=== PATIENT | female | born 1955 | race Caucasian/White ===

== ENCOUNTER 2018-09-17 08:39 | Inpatient (IN) ==
[2018-09-17] MEDS ORDERED: ZIPRASIDONE 20 MG/1 ML VIAL IM STA (09:07)
[2018-09-17] MEDS ORDERED: ZIPRASIDONE 20 MG/1 ML VIAL IM ONE (09:19)
[2018-09-17 09:46] LABS: Basophils % 0.9 % (0.0-0.8); Eosinophils % 0.2 % (0.00-10.9); Hematocrit 51.9 VOL% (35.7-47.0); Hemoglobin 16.7 GM/DL (12.0-16.0); Immature Granulocytes % 0.2 %; Immature Granulocytes Absolute 0.01 #; Lymphocytes # 0.6 10*3/uL (1.4-4.0); Lymphocytes % 12.4 % (21.3-54.2); Mean Corpuscular HGB Conc 32.2 GM/DL (32-36); Mean Corpuscular Volume 94.5 FL (87-102); Mean Platelet Volume 12.2 FL (9.6-12.0); Neutrophils % 79.3 % (38.7-73.9); Platelet Count 164 T/CUMM (130-400); Red Blood Count 5.49 MC/CUMM (3.8-5.5); Red Cell Distribution Width 15.1 % (9.3-17.3); White Blood Count 4.6 T/CUMM (4-12)
[2018-09-17 09:59] LABS: INR 1.4; PT Patient Result 14.9 SECS; Partial Thromboplastin Time 34.7 SECS (0-40)
[2018-09-17 10:05] LABS: Alanine Aminotransferase < 9 U/L (13-56); Albumin 3.8 G/DL (3.4-5.0); Alkaline Phosphatase 76 U/L (45-117); Aspartate Amino Transferase 12 U/L (0-37); Bilirubin,Total < 0.39 MG/DL (0.2-1.0); Blood Urea Nitrogen 21 MG/DL (7-18); Calcium 8.4 MG/DL (8.5-10.1); Glucose 93 MG/DL (74-106); Osmolality,Calculated 288.8 MOS/KG (273-304); Total Protein 7.2 G/DL (6.4-8.3)
[2018-09-17 10:20] LABS: Barbiturates Screen,Urine Negative (Negative); Benzodiazepines Screen,Urine Negative (Negative); Cannabinoid Screen,Urine Negative (Negative); Opiate Screen,Urine Negative (Negative); Phencyclidine Screen,Urine Negative (Negative)
[2018-09-17 10:39] LABS: Apearance,Urine Clear (Clear); Bilirubin,Urine Negative (Negative); Blood, Urine Trace mg/dL (Negative); Glucose,Urine (UA) Negative (Negative); Ketones,Urine 3+ mg/dL (Negative); Nitrite,Urine Negative (Negative); Protein,Urine 2+ MG/DL; Urine Color Amber (Yellow); Urine Specific Gravity 1.035 (1.001-1.035)
[2018-09-17 10:40] LABS: RBC,Urine Trace /HPF (0-4); Squamous Epithelial Cell,Urine Few /HPF (0-10); WBC,Urine Rare /HPF (0-6)
[2018-09-17 10:41] LABS: Amorphous Crystals,Urine Few /HPF (Few); Hyaline Casts,Urine Few /LPF (0-3)
[2018-09-17] MEDS ORDERED: SODIUM CHLORIDE 0.9% 1,000 ML IV STA (11:07)
[2018-09-17] MEDS ORDERED: ONDANSETRON 4 MG/2 ML VIAL IV PRN (13:27)
[2018-09-17] MEDS: SODIUM CHLORIDE 0.9% 1,000 ML IV SCH (15:15)
[2018-09-18 07:07] LABS: Basophils % 0.4 % (0.0-0.8); Hematocrit 47.7 VOL% (35.7-47.0); Hemoglobin 14.8 GM/DL (12.0-16.0); Immature Granulocytes % 0.4 %; Immature Granulocytes Absolute 0.04 #; Lymphocytes # 0.6 10*3/uL (1.4-4.0); Lymphocytes % 5.7 % (21.3-54.2); Mean Corpuscular Volume 97.9 FL (87-102); Mean Platelet Volume 12.3 FL (9.6-12.0); Neutrophils % 86.5 % (38.7-73.9); Platelet Count 149 T/CUMM (130-400); Red Blood Count 4.87 MC/CUMM (3.8-5.5); Red Cell Distribution Width 15.5 % (9.3-17.3); White Blood Count 10.1 T/CUMM (4-12)
[2018-09-18 07:37] LABS: Albumin 3.1 G/DL (3.4-5.0); Bilirubin,Total 0.7 MG/DL (0.2-1.0); Calcium 8.2 MG/DL (8.5-10.1); Osmolality,Calculated 294.3 MOS/KG (273-304); Thyroid Stimulating Hormone 0.299 uIU/ml (0.358-3.74); Total Protein 5.8 G/DL (6.4-8.3)
[2018-09-18] MEDS: ENOXAPARIN 40 MG/0.4 ML SYRINGE SUBCUT SCH (08:48)
[2018-09-18] MEDS: PANTOPRAZOLE 40 MG VIAL IV SCH (08:54)
[2018-09-18] MEDS ORDERED: PANTOPRAZOLE 40 MG TABLET PO SCH (09:00)
[2018-09-18] MEDS: SODIUM CHLORIDE 0.9% 1,000 ML IV SCH (10:52)
[2018-09-18] MEDS: QUEtiapine 25 MG TABLET PO SCH (18:00)
[2018-09-18] MEDS: DONEPEZIL 5 MG TABLET PO SCH (20:11)
[2018-09-19 06:04] LABS: Basophils % 0.6 % (0.0-0.8); Eosinophils % 0.2 % (0.00-10.9); Immature Granulocytes % 0.6 %; Immature Granulocytes Absolute 0.03 #; Lymphocytes # 0.6 10*3/uL (1.4-4.0); Lymphocytes % 11.9 % (21.3-54.2); Mean Corpuscular HGB Conc 31.8 GM/DL (32-36); Mean Corpuscular Volume 96.9 FL (87-102); Mean Platelet Volume 12.1 FL (9.6-12.0); Monocytes % 9.5 % (1.7-12.7); Neutrophils % 77.2 % (38.7-73.9); Platelet Count 123 T/CUMM (130-400); Red Blood Count 4.54 MC/CUMM (3.8-5.5); Red Cell Distribution Width 15.1 % (9.3-17.3); White Blood Count 5.4 T/CUMM (4-12)
[2018-09-19 06:36] LABS: Albumin 2.8 G/DL (3.4-5.0); Bilirubin,Total 0.8 MG/DL (0.2-1.0); Calcium 8.3 MG/DL (8.5-10.1); Osmolality,Calculated 286.7 MOS/KG (273-304); Total Protein 5.5 G/DL (6.4-8.3)
[2018-09-19] MEDS: SODIUM CHLORIDE 0.9% 1,000 ML IV SCH (06:40)
[2018-09-19] MEDS: PANTOPRAZOLE 40 MG VIAL IV SCH (08:41)
[2018-09-19] MEDS: QUEtiapine 25 MG TABLET PO SCH (08:41)
[2018-09-19] MEDS: ENOXAPARIN 40 MG/0.4 ML SYRINGE SUBCUT SCH (08:42)
[2018-09-19] MEDS ORDERED: ACETAMINOPHEN 325 MG TABLET PO PRN (15:08)
[2018-09-19] MEDS ORDERED: QUEtiapine 25 MG TABLET PO ONE (19:10)
[2018-09-19] MEDS: DONEPEZIL 5 MG TABLET PO SCH (20:23)
[2018-09-20] MEDS: SODIUM CHLORIDE 0.9% 1,000 ML IV SCH (01:40)
[2018-09-20] MEDS: ENOXAPARIN 40 MG/0.4 ML SYRINGE SUBCUT SCH (09:20)
[2018-09-20] MEDS: QUEtiapine 25 MG TABLET PO SCH (09:21)
[2018-09-20] MEDS: PANTOPRAZOLE 40 MG VIAL IV SCH (09:21)
[2018-09-20] MEDS ORDERED: LORazepam 0.5 MG TABLET PO PRN (14:56)
[2018-09-20] MEDS ORDERED: NICOTINE 14 MG/24 HR PATCH TRANSDERM SCH (15:00)
[2018-09-20 17:58] VITALS: BP 184/86
== END 2018-09-20 18:38 | DRG 884 ==
LOC: EDUNIT# → EDBD → N.ED 08:39 → N.EDINP 11:12 → N.5E 13:05
PROVIDERS: ADMIT Internal Medicine; ATTEND Internal Medicine

== ENCOUNTER 2022-01-25 21:40 | Inpatient (IN) ==
[2022-01-25] MEDS ORDERED: methylPREDNISolone SOD SUC 125 MG/2 ML VIAL IV STA (22:12)
[2022-01-25] MEDS ORDERED: ALBUTEROL/IPRATROPIUM 3 ML NEB RESP TX STA (22:12)
[2022-01-25] MEDS ORDERED: hydrALAZINE 20 MG/1 ML VIAL IV STA (22:15)
[2022-01-25 22:33] LABS: Basophils # 0.1 10*3/uL (0.0-0.2); Basophils % 0.6 % (0.0-0.8); Eosinophils # 0.1 10*3/uL (0.0-0.87); Eosinophils % 0.6 % (0.00-10.9); Hematocrit 53.6 VOL% (35.7-47.0); Hemoglobin 16.9 GM/DL (12.0-16.0); Immature Granulocytes % 0.6 %; Immature Granulocytes Absolute 0.08 #; Lymphocytes # 1.8 10*3/uL (1.4-4.0); Lymphocytes % 13.1 % (21.3-54.2); Mean Corpuscular HGB Conc 31.5 GM/DL (32-36); Mean Platelet Volume 12.9 FL (9.6-12.0); Monocytes # 0.8 10*3/uL (0.11-0.8); Monocytes % 5.7 % (1.7-12.7); Neutrophils % 79.4 % (38.7-73.9); Platelet Count 200 T/CUMM (130-400); Red Blood Count 5.64 MC/CUMM (3.8-5.5); Red Cell Distribution Width 13.2 % (9.3-17.3)
[2022-01-25 22:50] LABS: Arterial Base Excess iSTAT -8 MMOL/L (-2.5-2.5); Arterial Bicarbonate iSTAT 20.7 MMOL/L (20-26); Arterial O2 Saturation iSTAT 89 % (95-100); Arterial PCO2 iSTAT 53 MM HG (35-48); Arterial PO2 iSTAT 71 MM HG (80-95); Arterial Total CO2 iSTAT 22 MMO/L (23-27)
[2022-01-25] MEDS ORDERED: ALBUTEROL 2.5 MG/3 ML NEB RESP TX ONE (22:50)
[2022-01-25] MEDS ORDERED: ALBUTEROL NEB SOLN 5 MG/ML 20 ML/BOTTLE CONT NEB STA (22:50)
[2022-01-25 22:54] LABS: Albumin 3.3 G/DL (3.4-5.0); Bilirubin,Total 0.5 MG/DL (0.20-1.00); Calcium 9.1 MG/DL (8.5-10.1); Osmolality,Calculated 291.1 MOS/KG (273-304); Potassium 5.4 MMOL/L (3.5-5.1); Total Protein 6.9 G/DL (6.4-8.2)
[2022-01-25] MEDS ORDERED: cefTRIAXone 1,000 MG in SODIUM CHLORIDE 0.9% 100 ML IV STA (22:56)
[2022-01-25 23:00] LABS: Lymphocytes 13 % (20-55); Platelet Estimate Adequate; Total Cells Counted 100
[2022-01-25] MEDS ORDERED: FUROSEMIDE 20 MG/2 ML VIAL IV STA (23:40)
[2022-01-25] MEDS ORDERED: FUROSEMIDE 40 MG/4 ML VIAL ONE (23:53)
[2022-01-26] MEDS ORDERED: ETOMIDATE 20 MG/10 ML VIAL IV STA (00:26)
[2022-01-26] MEDS ORDERED: ROCURONIUM 100 MG/10 ML VIAL IV STA (00:26)
[2022-01-26] MEDS ORDERED: ROCURONIUM 100 MG/10 ML VIAL IV ONE (00:42)
[2022-01-26] MEDS ORDERED: ETOMIDATE 20 MG/10 ML VIAL IV ONE (00:42)
[2022-01-26] MEDS ORDERED: ALBUTEROL 2.5 MG/3 ML NEB RESP TX PRN (02:54)
[2022-01-26] MEDS ORDERED: hydrALAZINE 20 MG/1 ML VIAL IV PRN (02:55)
[2022-01-26] MEDS ORDERED: NICOTINE 21 MG/24 HR PATCH TRANSDERM PRN (02:55)
[2022-01-26] MEDS ORDERED: FAMOTIDINE 20 MG/2 ML VIAL IV SCH (03:00)
[2022-01-26] MEDS ORDERED: SODIUM POLYSTYRENE SULFATE 15 GM/60 ML BOTTLE PO ONE (03:04)
[2022-01-26 03:46] LABS: Arterial Base Excess iSTAT -6 MMOL/L (-2.5-2.5); Arterial Bicarbonate iSTAT 23.8 MMOL/L (20-26); Arterial O2 Saturation iSTAT 99 % (95-100); Arterial PCO2 iSTAT 62 MM HG (35-48); Arterial PO2 iSTAT 164 MM HG (80-95); Arterial Total CO2 iSTAT 26 MMO/L (23-27); Arterial pH iSTAT 7.192 (7.35-7.45)
[2022-01-26] MEDS ORDERED: ENOXAPARIN 60 MG/0.6 ML SYRINGE SUBCUT SCH (04:30)
[2022-01-26] MEDS: methylPREDNISolone SOD SUC 40 MG/1 ML VIAL IV SCH ×3 (05:28→21:08)
[2022-01-26] MEDS ORDERED: PNEUMOCOCCAL VACCINE (13 VALENT) 0.5 ML SYRINGE IM ONE (06:35)
[2022-01-26] MEDS: ALBUTEROL/IPRATROPIUM 3 ML NEB RESP TX SCH ×3 (07:02→18:50)
[2022-01-26 07:08] LABS: Basophils % 0.2 % (0.0-0.8); Hematocrit 55.4 VOL% (35.7-47.0); Hemoglobin 17.4 GM/DL (12.0-16.0); Immature Granulocytes % 0.5 %; Immature Granulocytes Absolute 0.09 #; Lymphocytes # 0.3 10*3/uL (1.4-4.0); Lymphocytes % 1.7 % (21.3-54.2); Mean Corpuscular HGB Conc 31.4 GM/DL (32-36); Mean Platelet Volume 12.9 FL (9.6-12.0); Monocytes # 0.9 10*3/uL (0.11-0.8); Monocytes % 4.3 % (1.7-12.7); Neutrophils % 93.3 % (38.7-73.9); Platelet Count 201 T/CUMM (130-400); Red Blood Count 5.83 MC/CUMM (3.8-5.5); Red Cell Distribution Width 13.7 % (9.3-17.3); White Blood Count 19.9 T/CUMM (4-12)
[2022-01-26 07:33] LABS: Band Neutrophils 5 % (0-10); Lymphocytes 1 % (20-55); Platelet Estimate Normal; Total Cells Counted 100
[2022-01-26 07:37] LABS: Albumin 3.3 G/DL (3.4-5.0); Bilirubin,Total 0.4 MG/DL (0.20-1.00); Calcium 9.3 MG/DL (8.5-10.1); Osmolality,Calculated 289.4 MOS/KG (273-304); Potassium 4.6 MMOL/L (3.5-5.1); Total Protein 7.7 G/DL (6.4-8.2)
[2022-01-26 07:42] LABS: Bilirubin,Urine Negative (Negative); Blood, Urine Trace mg/dL (Negative); Glucose,Urine (UA) Negative (Negative); Hyaline Casts,Urine 6 /LPF (0-3); Ketones,Urine Negative (Negative); Mucus,Urine Occasional /LPF (Occasional); Nitrite,Urine Negative (Negative); Protein,Urine 30 mg/dL (Negative); Squamous Epithelial Cell,Urine Occasional /HPF (0-10); Urine Appearance Clear (Clear); Urine Color Yellow (Yellow); Urine Urobilinogen 0.2 eU/dL (<2.0); Urine pH 5.5 (4.5-8.0)
[2022-01-26] MEDS ORDERED: PROPRANOLOL 20 MG TABLET PO SCH (09:00)
[2022-01-26] MEDS ORDERED: ENOXAPARIN 40 MG/0.4 ML SYRINGE SUBCUT SCH (09:00)
[2022-01-26] MEDS ORDERED: AZITHROMYCIN 40 MG/ML 15 ML/BOTTLE PO ONE (09:45)
[2022-01-26 09:55] LABS: Arterial Base Excess iSTAT -7 MMOL/L (-2.5-2.5); Arterial Bicarbonate iSTAT 24.8 MMOL/L (20-26); Arterial O2 Saturation iSTAT 99 % (95-100); Arterial PCO2 iSTAT 75 MM HG (35-48); Arterial PO2 iSTAT 208 MM HG (80-95); Arterial Total CO2 iSTAT 27 MMO/L (23-27); Arterial pH iSTAT 7.129 (7.35-7.45)
[2022-01-26] MEDS ORDERED: cloNIDine 0.3 MG/24 HR PATCH TRANSDERM SCH (10:30)
[2022-01-26] MEDS ORDERED: amLODIPine 5 MG TABLET PO SCH (11:00)
[2022-01-26] MEDS: METOPROLOL TARTRATE 25 MG TABLET PER TUBE SCH ×2 (11:03→21:08)
[2022-01-26] MEDS ORDERED: METOPROLOL TARTRATE 5 MG/5 ML VIAL IV ONE (13:34)
[2022-01-26] MEDS: amLODIPine 10 MG TABLET PER TUBE SCH (13:45)
[2022-01-26] MEDS ORDERED: METOPROLOL TARTRATE 25 MG TABLET PO SCH (21:00)
[2022-01-26] MEDS: cefTRIAXone 1,000 MG in SODIUM CHLORIDE 0.9% 100 ML IV SCH (22:45)
[2022-01-27] MEDS: ALBUTEROL/IPRATROPIUM 3 ML NEB RESP TX SCH ×4 (00:12→19:25)
[2022-01-27 03:53] LABS: Arterial Base Excess iSTAT -4 MMOL/L (-2.5-2.5); Arterial Bicarbonate iSTAT 21.3 MMOL/L (20-26); Arterial O2 Saturation iSTAT 99 % (95-100); Arterial PCO2 iSTAT 39 MM HG (35-48); Arterial PO2 iSTAT 140 MM HG (80-95); Arterial Total CO2 iSTAT 22 MMO/L (23-27)
[2022-01-27] MEDS: methylPREDNISolone SOD SUC 40 MG/1 ML VIAL IV SCH ×3 (05:44→21:56)
[2022-01-27 06:32] LABS: Basophils % 0.2 % (0.0-0.8); Hematocrit 50.7 VOL% (35.7-47.0); Hemoglobin 16.1 GM/DL (12.0-16.0); Immature Granulocytes % 0.3 %; Immature Granulocytes Absolute 0.06 #; Lymphocytes # 0.6 10*3/uL (1.4-4.0); Lymphocytes % 3.4 % (21.3-54.2); Mean Corpuscular HGB Conc 31.8 GM/DL (32-36); Mean Corpuscular Volume 92.7 FL (87-102); Mean Platelet Volume 13.4 FL (9.6-12.0); Monocytes # 1.1 10*3/uL (0.11-0.8); Neutrophils % 90.1 % (38.7-73.9); Platelet Count 188 T/CUMM (130-400); Red Blood Count 5.47 MC/CUMM (3.8-5.5); Red Cell Distribution Width 13.8 % (9.3-17.3); White Blood Count 18.3 T/CUMM (4-12)
[2022-01-27 06:56] LABS: Anisocytosis Slight; Band Neutrophils 4 % (0-10); Lymphocytes 4 % (20-55); Macrocytosis 1+; Platelet Estimate Normal; Total Cells Counted 100
[2022-01-27 06:59] LABS: Alanine Aminotransferase 26 U/L (13-56); Alkaline Phosphatase 105 U/L (45-117); Aspartate Amino Transferase 64 U/L (0-37); Bilirubin,Total < 0.39 MG/DL (0.20-1.00); Blood Urea Nitrogen 39 MG/DL (7-18); Calcium 8.4 MG/DL (8.5-10.1); Carbon Dioxide 20 MMOL/L (21-32); Chloride 113 MMOL/L (98-107); Glucose 160 MG/DL (74-106); Osmolality,Calculated 297.8 MOS/KG (273-304); Potassium 5.1 MMOL/L (3.5-5.1); Sodium 144 MMOL/L (136-145); Total Protein 6.6 G/DL (6.4-8.2)
[2022-01-27] MEDS ORDERED: cloNIDine 0.1 MG TABLET PER TUBE PRN (08:00)
[2022-01-27] MEDS ORDERED: NITROGLYCERIN DRIP 50 MG/250 ML BOTTLE IV PRN (08:42)
[2022-01-27] MEDS ORDERED: GLUCAGON 1 MG VIAL IM PRN (08:46)
[2022-01-27] MEDS ORDERED: DEXTROSE 10% 250 ML BAG IV PRN (08:46)
[2022-01-27] MEDS: METOPROLOL TARTRATE 50 MG TABLET PER TUBE SCH ×2 (08:47→22:01)
[2022-01-27] MEDS: amLODIPine 10 MG TABLET PER TUBE SCH (08:47)
[2022-01-27] MEDS ORDERED: amLODIPine 5 MG TABLET PER TUBE SCH (09:00)
[2022-01-27] MEDS ORDERED: AZITHROMYCIN 40 MG/ML 15 ML/BOTTLE PO SCH (09:00)
[2022-01-27] MEDS: ENOXAPARIN 30 MG/0.3 ML SYRINGE SUBCUT SCH (09:43)
[2022-01-27] MEDS: SODIUM CHLORIDE 0.45% 1,000 ML IV SCH ×2 (09:48→23:05)
[2022-01-27] MEDS: FAMOTIDINE 20 MG/2 ML VIAL IV SCH (10:09)
[2022-01-27] MEDS ORDERED: EPINEPHrine 1 MG/ML VIAL ONE (15:59)
[2022-01-27] MEDS: cefTRIAXone 1,000 MG in SODIUM CHLORIDE 0.9% 100 ML IV SCH (23:25)
[2022-01-28] MEDS: ALBUTEROL/IPRATROPIUM 3 ML NEB RESP TX SCH ×4 (01:10→19:18)
[2022-01-28 03:48] LABS: Arterial Base Excess iSTAT -2 MMOL/L (-2.5-2.5); Arterial O2 Saturation iSTAT 97 % (95-100); Arterial PCO2 iSTAT 40 MM HG (35-48); Arterial PO2 iSTAT 94 MM HG (80-95); Arterial Total CO2 iSTAT 24 MMO/L (23-27); Arterial pH iSTAT 7.369 (7.35-7.45)
[2022-01-28 04:03] LABS: Basophils % 0.1 % (0.0-0.8); Hematocrit 42.9 VOL% (35.7-47.0); Hemoglobin 13.6 GM/DL (12.0-16.0); Immature Granulocytes % 0.7 %; Immature Granulocytes Absolute 0.13 #; Lymphocytes # 0.4 10*3/uL (1.4-4.0); Lymphocytes % 2.5 % (21.3-54.2); Mean Corpuscular HGB Conc 31.7 GM/DL (32-36); Mean Corpuscular Volume 93.5 FL (87-102); Mean Platelet Volume 13.2 FL (9.6-12.0); Monocytes # 1.4 10*3/uL (0.11-0.8); Monocytes % 8.1 % (1.7-12.7); Neutrophils % 88.6 % (38.7-73.9); Platelet Count 153 T/CUMM (130-400); Red Blood Count 4.59 MC/CUMM (3.8-5.5); Red Cell Distribution Width 13.8 % (9.3-17.3); White Blood Count 17.7 T/CUMM (4-12)
[2022-01-28 04:20] LABS: Alanine Aminotransferase 17 U/L (13-56); Albumin 2.2 G/DL (3.4-5.0); Alkaline Phosphatase 75 U/L (45-117); Aspartate Amino Transferase 22 U/L (0-37); Bilirubin,Total < 0.39 MG/DL (0.20-1.00); Blood Urea Nitrogen 56 MG/DL (7-18); Calcium 8.4 MG/DL (8.5-10.1); Carbon Dioxide 22 MMOL/L (21-32); Chloride 109 MMOL/L (98-107); Glucose 136 MG/DL (74-106); Osmolality,Calculated 294.5 MOS/KG (273-304); Potassium 3.5 MMOL/L (3.5-5.1); Sodium 139 MMOL/L (136-145); Total Protein 5.7 G/DL (6.4-8.2)
[2022-01-28 04:25] LABS: Lymphocytes 2 % (20-55); Total Cells Counted 100
[2022-01-28 04:26] LABS: Platelet Estimate Adequate
[2022-01-28] MEDS: methylPREDNISolone SOD SUC 40 MG/1 ML VIAL IV SCH ×2 (06:21→21:57)
[2022-01-28] MEDS ORDERED: FUROSEMIDE 40 MG TABLET PER TUBE ONE (08:23)
[2022-01-28] MEDS: amLODIPine 5 MG TABLET PER TUBE SCH (09:22)
[2022-01-28] MEDS: SACUBITRIL/VALSARTAN 49-51 MG TABLET PO SCH ×2 (09:22→22:01)
[2022-01-28] MEDS: METOPROLOL SUCCINATE XL 50 MG TABLET PO SCH (09:22)
[2022-01-28] MEDS: SERTRALINE 50 MG TABLET PO SCH (09:22)
[2022-01-28] MEDS: FAMOTIDINE 20 MG/2 ML VIAL IV SCH (09:23)
[2022-01-28] MEDS: ENOXAPARIN 30 MG/0.3 ML SYRINGE SUBCUT SCH (09:23)
[2022-01-28] MEDS: MULTIVITAMIN LIQUID (CENTRUM) 60 ML BOTTLE PO SCH (09:23)
[2022-01-28] MEDS ORDERED: MIRTAZAPINE 15 MG TABLET PO SCH (21:00)
[2022-01-28] MEDS: cefTRIAXone 1,000 MG in SODIUM CHLORIDE 0.9% 100 ML IV SCH (22:21)
[2022-01-29] MEDS: ALBUTEROL/IPRATROPIUM 3 ML NEB RESP TX SCH ×5 (00:43→23:37)
[2022-01-29 03:38] LABS: Basophils % 0.2 % (0.0-0.8); Hemoglobin 13.8 GM/DL (12.0-16.0); Immature Granulocytes % 0.8 %; Immature Granulocytes Absolute 0.12 #; Lymphocytes # 0.2 10*3/uL (1.4-4.0); Lymphocytes % 1.1 % (21.3-54.2); Mean Corpuscular HGB Conc 32.1 GM/DL (32-36); Mean Corpuscular Volume 90.7 FL (87-102); Mean Platelet Volume 13.8 FL (9.6-12.0); Monocytes # 0.5 10*3/uL (0.11-0.8); Monocytes % 3.8 % (1.7-12.7); Neutrophils % 94.1 % (38.7-73.9); Platelet Count 155 T/CUMM (130-400); Red Blood Count 4.74 MC/CUMM (3.8-5.5); Red Cell Distribution Width 13.8 % (9.3-17.3); White Blood Count 14.2 T/CUMM (4-12)
[2022-01-29 03:57] LABS: Calcium 7.8 MG/DL (8.5-10.1); Osmolality,Calculated 299.1 MOS/KG (273-304); Potassium 2.8 MMOL/L (3.5-5.1)
[2022-01-29 03:58] LABS: Lymphocytes 1 % (20-55); Nucleated Red Blood Cells 1 /100 WBC (0-5); Platelet Estimate Adequate; Total Cells Counted 100
[2022-01-29 04:44] LABS: Arterial Base Excess iSTAT 1 MMOL/L (-2.5-2.5); Arterial Bicarbonate iSTAT 26.8 MMOL/L (20-26); Arterial O2 Saturation iSTAT 98 % (95-100); Arterial PCO2 iSTAT 46 MM HG (35-48); Arterial PO2 iSTAT 103 MM HG (80-95); Arterial Total CO2 iSTAT 28 MMO/L (23-27); Arterial pH iSTAT 7.372 (7.35-7.45)
[2022-01-29] MEDS: POTASSIUM CHLORIDE RIDER 10 MEQ/100 ML PREMIX IV PRN (06:53)
[2022-01-29] MEDS: SERTRALINE 50 MG TABLET PO SCH (09:40)
[2022-01-29] MEDS: AZITHROMYCIN 250 MG TABLET PO SCH (09:40)
[2022-01-29] MEDS: SACUBITRIL/VALSARTAN 49-51 MG TABLET PO SCH ×2 (09:40→20:00)
[2022-01-29] MEDS: MULTIVITAMIN LIQUID (CENTRUM) 60 ML BOTTLE PO SCH (09:40)
[2022-01-29] MEDS: POTASSIUM CHLORIDE 20 MEQ TABLET PO SCH ×5 (09:40→23:39)
[2022-01-29] MEDS: METOPROLOL SUCCINATE XL 50 MG TABLET PO SCH (09:40)
[2022-01-29] MEDS: methylPREDNISolone SOD SUC 40 MG/1 ML VIAL IV SCH ×2 (09:40→20:50)
[2022-01-29] MEDS: FAMOTIDINE 20 MG/2 ML VIAL IV SCH (09:42)
[2022-01-29] MEDS: ENOXAPARIN 30 MG/0.3 ML SYRINGE SUBCUT SCH (09:42)
[2022-01-29] MEDS: ACETAMINOPHEN 325 MG TABLET PO PRN (10:48)
[2022-01-29] MEDS: amLODIPine 5 MG TABLET PER TUBE SCH (11:51)
[2022-01-29] MEDS ORDERED: DEXMEDETOMIDINE 400 MCG in SODIUM CHLORIDE 0.9% 96 ML IV PRN (18:54)
[2022-01-29] MEDS: cefTRIAXone 1,000 MG in SODIUM CHLORIDE 0.9% 100 ML IV SCH (23:15)
[2022-01-30 02:45] LABS: Arterial Base Excess iSTAT 7 MMOL/L (-2.5-2.5); Arterial Bicarbonate iSTAT 31.7 MMOL/L (20-26); Arterial O2 Saturation iSTAT 98 % (95-100); Arterial PCO2 iSTAT 43 MM HG (35-48); Arterial PO2 iSTAT 97 MM HG (80-95); Arterial Total CO2 iSTAT 33 MMO/L (23-27); Arterial pH iSTAT 7.473 (7.35-7.45)
[2022-01-30 04:40] LABS: Basophils % 0.1 % (0.0-0.8); Hematocrit 41.4 VOL% (35.7-47.0); Immature Granulocytes % 0.6 %; Lymphocytes # 0.2 10*3/uL (1.4-4.0); Lymphocytes % 1.3 % (21.3-54.2); Mean Corpuscular HGB Conc 31.4 GM/DL (32-36); Mean Corpuscular Volume 93.5 FL (87-102); Mean Platelet Volume 13.4 FL (9.6-12.0); Monocytes # 0.9 10*3/uL (0.11-0.8); Monocytes % 5.6 % (1.7-12.7); Neutrophils % 92.4 % (38.7-73.9); Platelet Count 181 T/CUMM (130-400); Red Blood Count 4.43 MC/CUMM (3.8-5.5); Red Cell Distribution Width 13.8 % (9.3-17.3); White Blood Count 16.1 T/CUMM (4-12)
[2022-01-30 05:06] LABS: Calcium 8.2 MG/DL (8.5-10.1); Osmolality,Calculated 312.4 MOS/KG (273-304); Potassium 4.5 MMOL/L (3.5-5.1)
[2022-01-30 05:07] LABS: Phosphorous 2.5 MG/DL (2.5-4.9)
[2022-01-30 05:12] LABS: Band Neutrophils 3 % (0-10); Lymphocytes 1 % (20-55); Total Cells Counted 100
[2022-01-30 05:13] LABS: Microcytosis Slight; Platelet Estimate Adequate
[2022-01-30 05:14] LABS: Ovalocytes Slight
[2022-01-30] MEDS: ALBUTEROL/IPRATROPIUM 3 ML NEB RESP TX SCH ×4 (07:52→23:44)
[2022-01-30] MEDS: MULTIVITAMIN LIQUID (CENTRUM) 60 ML BOTTLE PO SCH (09:20)
[2022-01-30] MEDS: methylPREDNISolone SOD SUC 40 MG/1 ML VIAL IV SCH ×2 (09:22→21:29)
[2022-01-30] MEDS: AZITHROMYCIN 250 MG TABLET PO SCH (09:23)
[2022-01-30] MEDS: FAMOTIDINE 20 MG/2 ML VIAL IV SCH (09:23)
[2022-01-30] MEDS: ENOXAPARIN 30 MG/0.3 ML SYRINGE SUBCUT SCH (09:23)
[2022-01-30] MEDS: ASPIRIN CHEW 81 MG TABLET PO SCH (09:23)
[2022-01-30] MEDS: SERTRALINE 50 MG TABLET PO SCH (09:23)
[2022-01-30] MEDS: SACUBITRIL/VALSARTAN 49-51 MG TABLET PO SCH ×2 (10:08→21:38)
[2022-01-30] MEDS: METOPROLOL TARTRATE 25 MG TABLET NG SCH ×2 (10:09→21:38)
[2022-01-30 13:22] LABS: Arterial Base Excess iSTAT 7 MMOL/L (-2.5-2.5); Arterial Bicarbonate iSTAT 31.6 MMOL/L (20-26); Arterial O2 Saturation iSTAT 97 % (95-100); Arterial PCO2 iSTAT 44 MM HG (35-48); Arterial PO2 iSTAT 88 MM HG (80-95); Arterial Total CO2 iSTAT 33 MMO/L (23-27); Arterial pH iSTAT 7.469 (7.35-7.45)
[2022-01-30] MEDS ORDERED: ZINC OXIDE PASTE 113 GM TUBE TOP PRN (14:59)
[2022-01-30] MEDS ORDERED: cloNIDine 0.1 MG/24 HR PATCH TRANSDERM PRN (21:34)
[2022-01-30] MEDS: ATORVASTATIN 40 MG TABLET NG SCH (21:38)
[2022-01-30] MEDS ORDERED: cloNIDine 0.1 MG/24 HR PATCH TRANSDERM SCH (22:00)
[2022-01-30] MEDS: cefTRIAXone 1,000 MG in SODIUM CHLORIDE 0.9% 100 ML IV SCH (23:14)
[2022-01-30] MEDS: METOPROLOL TARTRATE 5 MG/5 ML VIAL IV SCH (23:14)
[2022-01-30] MEDS: MORPHINE 2 MG/1 ML SYRINGE IV PRN (23:15)
[2022-01-31] MEDS: ONDANSETRON 4 MG/2 ML VIAL IV PRN ×2 (03:10→23:25)
[2022-01-31] MEDS: MORPHINE 2 MG/1 ML SYRINGE IV PRN ×2 (03:10→23:26)
[2022-01-31 04:02] LABS: Basophils % 0.3 % (0.0-0.8); Hematocrit 43.2 VOL% (35.7-47.0); Hemoglobin 13.3 GM/DL (12.0-16.0); Immature Granulocytes % 2.4 %; Immature Granulocytes Absolute 0.34 #; Lymphocytes # 0.4 10*3/uL (1.4-4.0); Lymphocytes % 2.5 % (21.3-54.2); Mean Corpuscular HGB Conc 30.8 GM/DL (32-36); Mean Corpuscular Volume 95.4 FL (87-102); Mean Platelet Volume 13.3 FL (9.6-12.0); Monocytes # 0.6 10*3/uL (0.11-0.8); Monocytes % 3.8 % (1.7-12.7); Platelet Count 205 T/CUMM (130-400); Red Blood Count 4.53 MC/CUMM (3.8-5.5); Red Cell Distribution Width 14.2 % (9.3-17.3); White Blood Count 14.3 T/CUMM (4-12)
[2022-01-31 04:19] LABS: Calcium 8.9 MG/DL (8.5-10.1); Potassium 4.9 MMOL/L (3.5-5.1)
[2022-01-31 04:22] LABS: Risk Ratio 2.63; VLDL Cholesterol 15.8 MG/DL
[2022-01-31 04:26] LABS: Lymphocytes 3 % (20-55); Platelet Estimate Adequate; Total Cells Counted 100
[2022-01-31] MEDS: METOPROLOL TARTRATE 5 MG/5 ML VIAL IV SCH (06:25)
[2022-01-31] MEDS: ALBUTEROL/IPRATROPIUM 3 ML NEB RESP TX SCH ×3 (07:20→19:51)
[2022-01-31] MEDS: ASPIRIN CHEW 81 MG TABLET PO SCH (09:16)
[2022-01-31] MEDS: MULTIVITAMIN LIQUID (CENTRUM) 60 ML BOTTLE PO SCH (09:16)
[2022-01-31] MEDS: ENOXAPARIN 30 MG/0.3 ML SYRINGE SUBCUT SCH (09:16)
[2022-01-31] MEDS: AZITHROMYCIN 250 MG TABLET PO SCH (09:16)
[2022-01-31] MEDS: FAMOTIDINE 20 MG/2 ML VIAL IV SCH (09:16)
[2022-01-31] MEDS: methylPREDNISolone SOD SUC 40 MG/1 ML VIAL IV SCH ×2 (09:17→20:44)
[2022-01-31] MEDS: SERTRALINE 50 MG TABLET PO SCH (09:17)
[2022-01-31] MEDS: NEBIVOLOL 5 MG TABLET PO SCH (11:03)
[2022-01-31] MEDS ORDERED: MAGNESIUM SULF RIDER 2 GM/50 ML PREMIX IV PRN (11:44)
[2022-01-31] MEDS ORDERED: POTASSIUM CHLORIDE RIDER 10 MEQ/100 ML PREMIX IV PRN (11:44)
[2022-01-31] MEDS: DEXTROSE 5% 1,000 ML IV SCH (15:00)
[2022-01-31] MEDS: ACETAMINOPHEN 325 MG TABLET PO PRN (16:54)
[2022-01-31] MEDS: ATORVASTATIN 40 MG TABLET NG SCH (20:44)
[2022-01-31] MEDS: cefTRIAXone 1,000 MG in SODIUM CHLORIDE 0.9% 100 ML IV SCH (23:54)
[2022-02-01] MEDS: DEXTROSE 5% 1,000 ML IV SCH ×3 (00:50→18:25)
[2022-02-01] MEDS: ALBUTEROL/IPRATROPIUM 3 ML NEB RESP TX SCH ×4 (02:36→19:25)
[2022-02-01 03:43] LABS: Osmolality,Calculated 302.8 MOS/KG (273-304); Potassium 4.3 MMOL/L (3.5-5.1)
[2022-02-01 03:51] LABS: Basophils % 0.3 % (0.0-0.8); Hematocrit 41.6 VOL% (35.7-47.0); Hemoglobin 12.5 GM/DL (12.0-16.0); Immature Granulocytes % 4.7 %; Immature Granulocytes Absolute 0.54 #; Lymphocytes # 0.4 10*3/uL (1.4-4.0); Lymphocytes % 3.1 % (21.3-54.2); Mean Corpuscular Volume 96.3 FL (87-102); Mean Platelet Volume 12.7 FL (9.6-12.0); Monocytes # 0.7 10*3/uL (0.11-0.8); Monocytes % 5.8 % (1.7-12.7); Neutrophils % 86.1 % (38.7-73.9); Platelet Count 201 T/CUMM (130-400); Red Blood Count 4.32 MC/CUMM (3.8-5.5); Red Cell Distribution Width 13.8 % (9.3-17.3); White Blood Count 11.5 T/CUMM (4-12)
[2022-02-01 03:57] LABS: Lymphocytes 1 % (20-55); Total Cells Counted 100
[2022-02-01 03:58] LABS: Microcytosis Slight; Platelet Estimate Normal
[2022-02-01 10:27] LABS: Arterial Base Excess iSTAT 6 MMOL/L (-2.5-2.5); Arterial Bicarbonate iSTAT 33.9 MMOL/L (20-26); Arterial O2 Saturation iSTAT 91 % (95-100); Arterial PCO2 iSTAT 60 MM HG (35-48); Arterial PO2 iSTAT 66 MM HG (80-95); Arterial Total CO2 iSTAT 36 MMO/L (23-27); Arterial pH iSTAT 7.357 (7.35-7.45)
[2022-02-01] MEDS ORDERED: DIAZEPAM 5 MG TABLET PO ONE (13:00)
[2022-02-01] MEDS ORDERED: diphenhydrAMINE CAP 25 MG CAPSULE PO ONE (13:00)
[2022-02-01] MEDS ORDERED: LIDOCAINE 2%/EPI 20 ML VIAL ONE (13:04)
[2022-02-01] MEDS ORDERED: HEPARIN/NACL 0.9% 2 UNITS/ML 2,000 UNIT/1,000 ML BAG IV ONE (13:04)
[2022-02-01] MEDS ORDERED: fentaNYL 100 MCG/2 ML VIAL ONE (13:36)
[2022-02-01] MEDS ORDERED: ASPIRIN 325 MG TABLET ONE (13:53)
[2022-02-01] MEDS ORDERED: ENOXAPARIN 60 MG/0.6 ML SYRINGE ONE (13:53)
[2022-02-01] MEDS ORDERED: ENOXAPARIN 30 MG/0.3 ML SYRINGE ONE (13:55)
[2022-02-01] MEDS ORDERED: CLOPIDOGREL 300 MG TABLET ONE (13:57)
[2022-02-01] MEDS ORDERED: TIROFIBAN 5,000 MCG/100 ML PREMIX IV ONE (14:04)
[2022-02-01] MEDS ORDERED: SODIUM CHLORIDE 0.9% 1,000 ML IV SCH (15:00)
[2022-02-01] MEDS: MORPHINE 2 MG/1 ML SYRINGE IV PRN ×2 (16:03→21:00)
[2022-02-01 16:35] LABS: Basophils # 0.1 10*3/uL (0.0-0.2); Basophils % 0.4 % (0.0-0.8); Eosinophils % 0.1 % (0.00-10.9); Hematocrit 41.7 VOL% (35.7-47.0); Hemoglobin 12.7 GM/DL (12.0-16.0); Immature Granulocytes Absolute 0.83 #; Lymphocytes # 1.5 10*3/uL (1.4-4.0); Lymphocytes % 10.8 % (21.3-54.2); Mean Corpuscular HGB Conc 30.5 GM/DL (32-36); Mean Corpuscular Volume 95.2 FL (87-102); Mean Platelet Volume 11.9 FL (9.6-12.0); Monocytes # 1.5 10*3/uL (0.11-0.8); Monocytes % 10.4 % (1.7-12.7); Neutrophils % 72.3 % (38.7-73.9); Platelet Count 234 T/CUMM (130-400); Red Blood Count 4.38 MC/CUMM (3.8-5.5); Red Cell Distribution Width 13.5 % (9.3-17.3); White Blood Count 13.9 T/CUMM (4-12)
[2022-02-01] MEDS: ASPIRIN CHEW 81 MG TABLET PO SCH (17:13)
[2022-02-01] MEDS: NEBIVOLOL 5 MG TABLET PO SCH (17:13)
[2022-02-01] MEDS: MULTIVITAMIN LIQUID (CENTRUM) 60 ML BOTTLE PO SCH (17:13)
[2022-02-01] MEDS: methylPREDNISolone SOD SUC 40 MG/1 ML VIAL IV SCH ×2 (17:14→20:42)
[2022-02-01] MEDS: SERTRALINE 50 MG TABLET PO SCH (17:14)
[2022-02-01 17:16] LABS: Eosinophils 1 % (0-10); Lymphocytes 13 % (20-55); Total Cells Counted 100
[2022-02-01 17:17] LABS: Platelet Estimate Adequate
[2022-02-01] MEDS: ENOXAPARIN 30 MG/0.3 ML SYRINGE SUBCUT SCH (18:03)
[2022-02-01] MEDS: FAMOTIDINE 20 MG/2 ML VIAL IV SCH (18:04)
[2022-02-01] MEDS: ATORVASTATIN 40 MG TABLET NG SCH (20:42)
[2022-02-01] MEDS: cefTRIAXone 1,000 MG in SODIUM CHLORIDE 0.9% 100 ML IV SCH (22:27)
[2022-02-01 23:42] LABS: Arterial Base Excess iSTAT 3 MMOL/L (-2.5-2.5); Arterial O2 Saturation iSTAT 85 % (95-100); Arterial PCO2 iSTAT 42 MM HG (35-48); Arterial PO2 iSTAT 48 MM HG (80-95); Arterial Total CO2 iSTAT 29 MMO/L (23-27); Arterial pH iSTAT 7.435 (7.35-7.45)
[2022-02-02] MEDS: ALBUTEROL/IPRATROPIUM 3 ML NEB RESP TX SCH ×4 (00:59→19:56)
[2022-02-02 02:12] LABS: Arterial Base Excess iSTAT 2 MMOL/L (-2.5-2.5); Arterial Bicarbonate iSTAT 27.5 MMOL/L (20-26); Arterial O2 Saturation iSTAT 94 % (95-100); Arterial PCO2 iSTAT 44 MM HG (35-48); Arterial PO2 iSTAT 70 MM HG (80-95); Arterial Total CO2 iSTAT 29 MMO/L (23-27); Arterial pH iSTAT 7.404 (7.35-7.45)
[2022-02-02 04:20] LABS: Basophils # 0.1 10*3/uL (0.0-0.2); Basophils % 0.3 % (0.0-0.8); Hematocrit 40.3 VOL% (35.7-47.0); Hemoglobin 12.6 GM/DL (12.0-16.0); Immature Granulocytes % 3.1 %; Immature Granulocytes Absolute 0.58 #; Lymphocytes # 0.7 10*3/uL (1.4-4.0); Lymphocytes % 3.5 % (21.3-54.2); Mean Corpuscular HGB Conc 31.3 GM/DL (32-36); Mean Corpuscular Volume 94.2 FL (87-102); Mean Platelet Volume 12.2 FL (9.6-12.0); Monocytes # 1.3 10*3/uL (0.11-0.8); Monocytes % 7.1 % (1.7-12.7); Platelet Count 227 T/CUMM (130-400); Red Blood Count 4.28 MC/CUMM (3.8-5.5); Red Cell Distribution Width 13.4 % (9.3-17.3); White Blood Count 18.5 T/CUMM (4-12)
[2022-02-02 04:41] LABS: Calcium 8.2 MG/DL (8.5-10.1); Osmolality,Calculated 284.8 MOS/KG (273-304); Phosphorous 2.9 MG/DL (2.5-4.9); Potassium 3.8 MMOL/L (3.5-5.1)
[2022-02-02 04:44] LABS: Band Neutrophils 2 % (0-10); Lymphocytes 5 % (20-55); Platelet Estimate Adequate; Total Cells Counted 100
[2022-02-02 04:45] LABS: Microcytosis Slight
[2022-02-02] MEDS: DEXTROSE 5% 1,000 ML IV SCH ×3 (04:49→16:34)
[2022-02-02] MEDS: NEBIVOLOL 5 MG TABLET PO SCH (08:07)
[2022-02-02] MEDS: SERTRALINE 50 MG TABLET PO SCH (08:07)
[2022-02-02] MEDS: methylPREDNISolone SOD SUC 40 MG/1 ML VIAL IV SCH ×2 (08:07→21:24)
[2022-02-02] MEDS: CLOPIDOGREL 75 MG TABLET PO SCH (08:07)
[2022-02-02] MEDS: MULTIVITAMIN LIQUID (CENTRUM) 60 ML BOTTLE PO SCH (08:07)
[2022-02-02] MEDS: ASPIRIN CHEW 81 MG TABLET PO SCH (08:07)
[2022-02-02] MEDS: ENOXAPARIN 30 MG/0.3 ML SYRINGE SUBCUT SCH (15:29)
[2022-02-02] MEDS: FAMOTIDINE 20 MG/2 ML VIAL IV SCH (15:29)
[2022-02-02] MEDS: ATORVASTATIN 40 MG TABLET NG SCH (21:24)
[2022-02-02] MEDS: cefTRIAXone 1,000 MG in SODIUM CHLORIDE 0.9% 100 ML IV SCH (23:19)
[2022-02-03] MEDS ORDERED: ALBUTEROL/IPRATROPIUM 3 ML NEB RESP TX ONE (01:05)
[2022-02-03] MEDS: ALBUTEROL/IPRATROPIUM 3 ML NEB RESP TX SCH ×4 (01:25→19:42)
[2022-02-03 05:21] LABS: Basophils # 0.1 10*3/uL (0.0-0.2); Basophils % 0.5 % (0.0-0.8); Eosinophils % 0.3 % (0.00-10.9); Hematocrit 38.8 VOL% (35.7-47.0); Immature Granulocytes % 2.9 %; Immature Granulocytes Absolute 0.44 #; Lymphocytes % 6.6 % (21.3-54.2); Mean Corpuscular HGB Conc 30.9 GM/DL (32-36); Mean Corpuscular Volume 95.3 FL (87-102); Mean Platelet Volume 12.2 FL (9.6-12.0); Monocytes # 1.5 10*3/uL (0.11-0.8); Monocytes % 9.7 % (1.7-12.7); Platelet Count 166 T/CUMM (130-400); Red Blood Count 4.07 MC/CUMM (3.8-5.5); Red Cell Distribution Width 13.1 % (9.3-17.3); White Blood Count 15.3 T/CUMM (4-12)
[2022-02-03 05:33] LABS: Calcium 7.9 MG/DL (8.5-10.1); Potassium 3.8 MMOL/L (3.5-5.1)
[2022-02-03] MEDS: DEXTROSE 5% 1,000 ML IV SCH ×2 (06:03→20:55)
[2022-02-03 06:06] LABS: Calcium 7.9 MG/DL (8.5-10.1); Osmolality,Calculated 269.4 MOS/KG (273-304); Potassium 3.6 MMOL/L (3.5-5.1)
[2022-02-03] MEDS: MULTIVITAMIN LIQUID (CENTRUM) 60 ML BOTTLE PO SCH (09:12)
[2022-02-03] MEDS: ASPIRIN CHEW 81 MG TABLET PO SCH (09:12)
[2022-02-03] MEDS: NEBIVOLOL 5 MG TABLET PO SCH (09:12)
[2022-02-03] MEDS: CLOPIDOGREL 75 MG TABLET PO SCH (09:12)
[2022-02-03] MEDS: SERTRALINE 50 MG TABLET PO SCH (09:12)
[2022-02-03] MEDS: methylPREDNISolone SOD SUC 40 MG/1 ML VIAL IV SCH ×2 (10:08→18:41)
[2022-02-03] MEDS ORDERED: FUROSEMIDE 40 MG/4 ML VIAL IV ONE (12:16)
[2022-02-03] MEDS: FAMOTIDINE 20 MG/2 ML VIAL IV SCH (13:44)
[2022-02-03] MEDS: ENOXAPARIN 30 MG/0.3 ML SYRINGE SUBCUT SCH (13:51)
[2022-02-03 14:24] LABS: Arterial Base Excess iSTAT 4 MMOL/L (-2.5-2.5); Arterial Bicarbonate iSTAT 26.6 MMOL/L (20-26); Arterial O2 Saturation iSTAT 99 % (95-100); Arterial PCO2 iSTAT 34 MM HG (35-48); Arterial PO2 iSTAT 106 MM HG (80-95); Arterial Total CO2 iSTAT 28 MMO/L (23-27); Arterial pH iSTAT 7.502 (7.35-7.45)
[2022-02-03] MEDS: POTASSIUM CHLORIDE RIDER 10 MEQ/100 ML PREMIX IV PRN (17:18)
[2022-02-03] MEDS: ATORVASTATIN 40 MG TABLET NG SCH (20:42)
[2022-02-03] MEDS: cefTRIAXone 1,000 MG in SODIUM CHLORIDE 0.9% 100 ML IV SCH (22:09)
[2022-02-04] MEDS: ALBUTEROL/IPRATROPIUM 3 ML NEB RESP TX SCH ×4 (01:05→19:45)
[2022-02-04] MEDS: methylPREDNISolone SOD SUC 40 MG/1 ML VIAL IV SCH ×3 (01:10→19:25)
[2022-02-04] MEDS: MULTIVITAMIN LIQUID (CENTRUM) 60 ML BOTTLE PO SCH (10:00)
[2022-02-04] MEDS: NEBIVOLOL 5 MG TABLET PO SCH (10:34)
[2022-02-04] MEDS: SERTRALINE 50 MG TABLET PO SCH (10:34)
[2022-02-04] MEDS: ENOXAPARIN 30 MG/0.3 ML SYRINGE SUBCUT SCH (10:34)
[2022-02-04] MEDS: ASPIRIN CHEW 81 MG TABLET PO SCH (10:34)
[2022-02-04] MEDS: CLOPIDOGREL 75 MG TABLET PO SCH (10:34)
[2022-02-04] MEDS: FAMOTIDINE 20 MG/2 ML VIAL IV SCH (10:38)
[2022-02-04] MEDS: DEXTROSE 5% 1,000 ML IV SCH (15:58)
[2022-02-04] MEDS: ATORVASTATIN 40 MG TABLET NG SCH (21:49)
[2022-02-04] MEDS: cefTRIAXone 1,000 MG in SODIUM CHLORIDE 0.9% 100 ML IV SCH (22:01)
[2022-02-05] MEDS: ALBUTEROL/IPRATROPIUM 3 ML NEB RESP TX SCH ×4 (01:30→19:28)
[2022-02-05] MEDS: methylPREDNISolone SOD SUC 40 MG/1 ML VIAL IV SCH ×3 (02:05→17:04)
[2022-02-05 04:43] LABS: Basophils % 0.2 % (0.0-0.8); Hematocrit 31.1 VOL% (35.7-47.0); Hemoglobin 10.1 GM/DL (12.0-16.0); Immature Granulocytes Absolute 0.24 #; Lymphocytes # 0.5 10*3/uL (1.4-4.0); Lymphocytes % 3.7 % (21.3-54.2); Mean Corpuscular HGB Conc 32.5 GM/DL (32-36); Mean Corpuscular Volume 90.1 FL (87-102); Mean Platelet Volume 12.2 FL (9.6-12.0); Monocytes # 0.6 10*3/uL (0.11-0.8); Monocytes % 4.9 % (1.7-12.7); Neutrophils % 89.2 % (38.7-73.9); Platelet Count 208 T/CUMM (130-400); Red Blood Count 3.45 MC/CUMM (3.8-5.5); Red Cell Distribution Width 12.9 % (9.3-17.3); White Blood Count 12.2 T/CUMM (4-12)
[2022-02-05 05:01] LABS: Osmolality,Calculated 280.4 MOS/KG (273-304); Potassium 2.9 MMOL/L (3.5-5.1)
[2022-02-05] MEDS: DEXTROSE 5% 1,000 ML IV SCH ×3 (05:24→22:08)
[2022-02-05 05:33] LABS: Anisocytosis 1+; Band Neutrophils 2 % (0-10); Lymphocytes 3 % (20-55); Platelet Estimate Normal; Total Cells Counted 100
[2022-02-05 05:34] LABS: Macrocytosis Slight
[2022-02-05] MEDS: POTASSIUM CHLORIDE RIDER 10 MEQ/100 ML PREMIX IV PRN ×5 (08:25→12:42)
[2022-02-05] MEDS: FAMOTIDINE 20 MG/2 ML VIAL IV SCH (09:16)
[2022-02-05] MEDS: SERTRALINE 50 MG TABLET PO SCH (09:17)
[2022-02-05] MEDS: CLOPIDOGREL 75 MG TABLET PO SCH (09:17)
[2022-02-05] MEDS: ENOXAPARIN 30 MG/0.3 ML SYRINGE SUBCUT SCH (09:17)
[2022-02-05] MEDS: NEBIVOLOL 5 MG TABLET PO SCH (09:17)
[2022-02-05] MEDS: ASPIRIN CHEW 81 MG TABLET PO SCH (09:17)
[2022-02-05] MEDS: MULTIVITAMIN LIQUID (CENTRUM) 60 ML BOTTLE PO SCH (09:23)
[2022-02-05] MEDS: ACETAMINOPHEN 325 MG TABLET PO PRN ×2 (17:48→22:18)
[2022-02-05] MEDS: ATORVASTATIN 40 MG TABLET NG SCH (20:27)
[2022-02-05] MEDS: cefTRIAXone 1,000 MG in SODIUM CHLORIDE 0.9% 100 ML IV SCH (22:19)
[2022-02-06] MEDS: ALBUTEROL/IPRATROPIUM 3 ML NEB RESP TX SCH ×4 (00:50→19:02)
[2022-02-06] MEDS: methylPREDNISolone SOD SUC 40 MG/1 ML VIAL IV SCH ×3 (02:08→18:51)
[2022-02-06] MEDS: ENOXAPARIN 30 MG/0.3 ML SYRINGE SUBCUT SCH (09:11)
[2022-02-06] MEDS: NEBIVOLOL 5 MG TABLET PO SCH (09:12)
[2022-02-06] MEDS: SERTRALINE 50 MG TABLET PO SCH (09:12)
[2022-02-06] MEDS: CLOPIDOGREL 75 MG TABLET PO SCH (09:12)
[2022-02-06] MEDS: FAMOTIDINE 20 MG/2 ML VIAL IV SCH (09:12)
[2022-02-06] MEDS: ASPIRIN CHEW 81 MG TABLET PO SCH (09:12)
[2022-02-06] MEDS: MULTIVITAMIN LIQUID (CENTRUM) 60 ML BOTTLE PO SCH (09:58)
[2022-02-06] MEDS: DEXTROSE 5% 1,000 ML IV SCH (17:23)
[2022-02-06 20:24] VITALS: BP 152/72
[2022-02-06] MEDS: ATORVASTATIN 40 MG TABLET NG SCH (21:07)
== END 2022-02-06 22:36 | DRG 246 ==
LOC: EDUNIT# → EDBD → N.ED 21:40 → N.CVR 01-26 02:54 → SUATTDRO 01-26 02:54 → N.CVR 01-26 05:58 → N.CC 01-31 17:30 → N.TELEN 02-02 16:17 → N.ICU 02-04 11:17 → N.TELEN 02-04 11:19
PROVIDERS: ADMIT Internal Medicine; ATTEND Internal Medicine
PROC: CLCCHCL (ICD-10-PCS; 2022-02-01 13:45)

== ENCOUNTER 2022-03-29 02:17 | Inpatient (IN) ==
[2022-03-29] MEDS ORDERED: hydrALAZINE 20 MG/1 ML VIAL IV STA (02:34)
[2022-03-29] MEDS ORDERED: hydrALAZINE 20 MG/1 ML VIAL ONE (02:35)
[2022-03-29] MEDS ORDERED: ALBUTEROL/IPRATROPIUM 3 ML NEB RESP TX STA (02:38)
[2022-03-29] MEDS ORDERED: ONDANSETRON 4 MG/2 ML VIAL IV STA (02:38)
[2022-03-29] MEDS ORDERED: methylPREDNISolone SOD SUC 125 MG/2 ML VIAL IV STA (02:38)
[2022-03-29] MEDS ORDERED: LORazepam 2 MG/1 ML VIAL IV STA (02:40)
[2022-03-29 02:41] LABS: Hematocrit 44.2 VOL% (35.7-47.0); Hemoglobin 14.3 GM/DL (12.0-16.0); Red Blood Count 4.81 MC/CUMM (3.8-5.5); White Blood Count 11.3 T/CUMM (4-12)
[2022-03-29 02:42] LABS: Basophils % 0.3 % (0.0-0.8); Eosinophils # 0.1 10*3/uL (0.0-0.87); Eosinophils % 0.4 % (0.00-10.9); Immature Granulocytes % 0.6 %; Immature Granulocytes Absolute 0.07 #; Lymphocytes # 2.1 10*3/uL (1.4-4.0); Lymphocytes % 18.7 % (21.3-54.2); Mean Corpuscular HGB Conc 32.4 GM/DL (32-36); Mean Corpuscular Volume 91.9 FL (87-102); Mean Platelet Volume 11.3 FL (9.6-12.0); Monocytes # 1.3 10*3/uL (0.11-0.8); Monocytes % 11.7 % (1.7-12.7); Neutrophils % 68.3 % (38.7-73.9); Platelet Count 176 T/CUMM (130-400); Red Cell Distribution Width 14.7 % (9.3-17.3)
[2022-03-29] MEDS ORDERED: FUROSEMIDE 20 MG/2 ML VIAL IV STA ×2 (02:44→03:11)
[2022-03-29] MEDS ORDERED: FUROSEMIDE 40 MG/4 ML VIAL ONE (02:48)
[2022-03-29] MEDS ORDERED: FUROSEMIDE 40 MG/4 ML VIAL IV STA ×2 (02:49→03:13)
[2022-03-29 02:51] LABS: PT Patient Result 10.7 SECS (10.1-12.1); Partial Thromboplastin Time 27.3 SECS (23.7-32.9)
[2022-03-29 03:02] LABS: Albumin 2.9 G/DL (3.4-5.0); Bilirubin,Total 0.7 MG/DL (0.20-1.00); Calcium 8.6 MG/DL (8.5-10.1); Osmolality,Calculated 277.7 MOS/KG (273-304); Potassium 3.6 MMOL/L (3.5-5.1); Total Protein 5.8 G/DL (6.4-8.2)
[2022-03-29] MEDS ORDERED: DILTIAZEM 25 MG/5 ML VIAL IV ONE (03:08)
[2022-03-29] MEDS ORDERED: DILTIAZEM 50 MG/10 ML VIAL IV STA (03:10)
[2022-03-29 03:14] LABS: ABG Base Excess 2.9 MMOL/L (-2.5-2.5); ABG Oxygen Saturation 98.1 % (95-100); ABG PCO2 24.2 MM HG (35-48); ABG PH 7.588 (7.35-7.45); ABG TCO2 19.6 MMOL/L (23-27)
[2022-03-29] MEDS ORDERED: ALBUTEROL/IPRATROPIUM 3 ML NEB RESP TX PRN (03:39)
[2022-03-29] MEDS ORDERED: MORPHINE 2 MG/1 ML SYRINGE IV PRN (03:39)
[2022-03-29] MEDS ORDERED: ACETAMINOPHEN 325 MG TABLET PO PRN (03:39)
[2022-03-29] MEDS ORDERED: ONDANSETRON 4 MG/2 ML VIAL IV PRN (03:39)
[2022-03-29 03:41] LABS: Bilirubin,Urine Negative (Negative); Blood, Urine Negative (Negative); Glucose,Urine (UA) Negative (Negative); Ketones,Urine Negative (Negative); Mucus,Urine Occasional /LPF (Occasional); Nitrite,Urine Negative (Negative); Protein,Urine 100 mg/dL (Negative); RBC,Urine 2 /HPF (0-4); Squamous Epithelial Cell,Urine Occasional /HPF (0-10); Urine Appearance Clear (Clear); Urine Color Yellow (Yellow); Urine Urobilinogen 0.2 eU/dL (<2.0)
[2022-03-29] MEDS: SODIUM CHLORIDE 0.9% 1,000 ML IV SCH (03:58)
[2022-03-29] MEDS: DILTIAZEM INJ 100 MG in SODIUM CHLORIDE 0.9% 100 ML IV SCH (03:58)
[2022-03-29] MEDS: ACETAMINOPHEN 325 MG TABLET PO PRN ×3 (04:17→14:50)
[2022-03-29] MEDS ORDERED: predniSONE 20 MG TABLET PO SCH (09:00)
[2022-03-29] MEDS: FUROSEMIDE 40 MG/4 ML VIAL IV SCH ×2 (09:28→17:53)
[2022-03-29] MEDS: DOCUSATE SODIUM 100 MG CAPSULE PO SCH ×2 (09:34→21:23)
[2022-03-29] MEDS: METOPROLOL SUCCINATE XL 25 MG TABLET PO SCH (09:34)
[2022-03-29] MEDS: MEMANTINE 10 MG TABLET PO SCH ×2 (09:35→21:23)
[2022-03-29] MEDS: FERROUS SULFATE 325 MG TABLET PO SCH (09:35)
[2022-03-29] MEDS: PANTOPRAZOLE 40 MG TABLET PO SCH (09:35)
[2022-03-29] MEDS: ASPIRIN CHEW 81 MG TABLET PO SCH (09:35)
[2022-03-29] MEDS: FOLIC ACID 1 MG TABLET PO SCH (09:35)
[2022-03-29] MEDS: MULTIVITAMIN (CENTRUM) TABLET PO SCH (09:35)
[2022-03-29] MEDS: CYANOCOBALAMIN 500 MCG TABLET PO SCH (09:35)
[2022-03-29] MEDS: CLOPIDOGREL 75 MG TABLET PO SCH (14:17)
[2022-03-29] MEDS ORDERED: ZINC OXIDE PASTE 113 GM TUBE TOP PRN (15:08)
[2022-03-29] MEDS ORDERED: methylPREDNISolone SOD SUC 40 MG/1 ML VIAL IV SCH (16:00)
[2022-03-29] MEDS: SERTRALINE 50 MG TABLET PO SCH (17:53)
[2022-03-29] MEDS: methylPREDNISolone SOD SUC 40 MG/1 ML VIAL IV SCH (18:00)
[2022-03-29] MEDS ORDERED: HALOPERIDOL 5 MG/ML AMP IM ONE (20:59)
[2022-03-29] MEDS: SACUBITRIL/VALSARTAN 49-51 MG TABLET PO SCH (21:23)
[2022-03-29] MEDS: ATORVASTATIN 40 MG TABLET PO SCH (21:23)
[2022-03-30] MEDS: DILTIAZEM INJ 100 MG in SODIUM CHLORIDE 0.9% 100 ML IV SCH ×2 (02:02→04:22)
[2022-03-30 05:39] LABS: Basophils % 0.1 % (0.0-0.8); Hematocrit 43.4 VOL% (35.7-47.0); Hemoglobin 14.2 GM/DL (12.0-16.0); Immature Granulocytes % 0.6 %; Lymphocytes # 0.8 10*3/uL (1.4-4.0); Lymphocytes % 5.2 % (21.3-54.2); Mean Corpuscular HGB Conc 32.7 GM/DL (32-36); Mean Corpuscular Volume 91.6 FL (87-102); Mean Platelet Volume 12.2 FL (9.6-12.0); Monocytes % 6.4 % (1.7-12.7); Neutrophils % 87.7 % (38.7-73.9); Platelet Count 228 T/CUMM (130-400); Red Blood Count 4.74 MC/CUMM (3.8-5.5); Red Cell Distribution Width 14.6 % (9.3-17.3); White Blood Count 15.9 T/CUMM (4-12)
[2022-03-30] MEDS: methylPREDNISolone SOD SUC 40 MG/1 ML VIAL IV SCH ×2 (05:53→17:01)
[2022-03-30 06:07] LABS: Osmolality,Calculated 286.5 MOS/KG (273-304); Potassium 3.6 MMOL/L (3.5-5.1)
[2022-03-30] MEDS: FUROSEMIDE 40 MG/4 ML VIAL IV SCH ×2 (10:34→17:00)
[2022-03-30] MEDS: MULTIVITAMIN (CENTRUM) TABLET PO SCH (10:35)
[2022-03-30] MEDS: ASPIRIN CHEW 81 MG TABLET PO SCH (10:35)
[2022-03-30] MEDS: CLOPIDOGREL 75 MG TABLET PO SCH (10:35)
[2022-03-30] MEDS: FOLIC ACID 1 MG TABLET PO SCH (10:35)
[2022-03-30] MEDS: DOCUSATE SODIUM 100 MG CAPSULE PO SCH ×2 (10:35→20:29)
[2022-03-30] MEDS: DAPAGLIFLOZIN 10 MG TABLET PO SCH (10:35)
[2022-03-30] MEDS: CYANOCOBALAMIN 500 MCG TABLET PO SCH (10:35)
[2022-03-30] MEDS: METOPROLOL SUCCINATE XL 25 MG TABLET PO SCH ×2 (10:36→20:29)
[2022-03-30] MEDS: SERTRALINE 50 MG TABLET PO SCH (10:36)
[2022-03-30] MEDS: FERROUS SULFATE 325 MG TABLET PO SCH (10:36)
[2022-03-30] MEDS: MEMANTINE 10 MG TABLET PO SCH ×2 (10:36→20:29)
[2022-03-30] MEDS: PANTOPRAZOLE 40 MG TABLET PO SCH (10:36)
[2022-03-30] MEDS: SACUBITRIL/VALSARTAN 49-51 MG TABLET PO SCH ×2 (10:36→20:29)
[2022-03-30] MEDS: ATORVASTATIN 40 MG TABLET PO SCH (20:29)
[2022-03-30] MEDS ORDERED: QUEtiapine 25 MG TABLET PO SCH (21:00)
[2022-03-31] MEDS: DILTIAZEM INJ 100 MG in SODIUM CHLORIDE 0.9% 100 ML IV SCH (04:28)
[2022-03-31 05:04] LABS: Basophils % 0.1 % (0.0-0.8); Hematocrit 46.1 VOL% (35.7-47.0); Hemoglobin 14.8 GM/DL (12.0-16.0); Immature Granulocytes % 0.5 %; Immature Granulocytes Absolute 0.05 #; Lymphocytes # 1.1 10*3/uL (1.4-4.0); Lymphocytes % 10.8 % (21.3-54.2); Mean Corpuscular HGB Conc 32.1 GM/DL (32-36); Mean Corpuscular Volume 93.7 FL (87-102); Mean Platelet Volume 11.9 FL (9.6-12.0); Monocytes # 0.9 10*3/uL (0.11-0.8); Monocytes % 8.4 % (1.7-12.7); Neutrophils % 80.2 % (38.7-73.9); Platelet Count 264 T/CUMM (130-400); Red Blood Count 4.92 MC/CUMM (3.8-5.5); White Blood Count 10.5 T/CUMM (4-12)
[2022-03-31] MEDS: methylPREDNISolone SOD SUC 40 MG/1 ML VIAL IV SCH (05:31)
[2022-03-31 05:47] LABS: Calcium 8.6 MG/DL (8.5-10.1); Osmolality,Calculated 285.8 MOS/KG (273-304); Potassium 3.7 MMOL/L (3.5-5.1)
[2022-03-31] MEDS ORDERED: CARBIDOPA/LEVODOPA 25-100 MG TABLET PO SCH (09:00)
[2022-03-31] MEDS ORDERED: QUEtiapine 25 MG TABLET PO SCH (09:00)
[2022-03-31] MEDS: FUROSEMIDE 40 MG/4 ML VIAL IV SCH (10:30)
[2022-03-31] MEDS: CYANOCOBALAMIN 500 MCG TABLET PO SCH (10:31)
[2022-03-31] MEDS: METOPROLOL SUCCINATE XL 25 MG TABLET PO SCH (10:31)
[2022-03-31] MEDS: ASPIRIN CHEW 81 MG TABLET PO SCH (10:31)
[2022-03-31] MEDS: MULTIVITAMIN (CENTRUM) TABLET PO SCH (10:31)
[2022-03-31] MEDS: FOLIC ACID 1 MG TABLET PO SCH (10:31)
[2022-03-31] MEDS: DOCUSATE SODIUM 100 MG CAPSULE PO SCH (10:31)
[2022-03-31] MEDS: CLOPIDOGREL 75 MG TABLET PO SCH (10:31)
[2022-03-31] MEDS: MEMANTINE 10 MG TABLET PO SCH (10:31)
[2022-03-31] MEDS: FERROUS SULFATE 325 MG TABLET PO SCH (10:31)
[2022-03-31] MEDS: DAPAGLIFLOZIN 10 MG TABLET PO SCH (10:32)
[2022-03-31] MEDS: SERTRALINE 50 MG TABLET PO SCH (10:36)
[2022-03-31] MEDS: SACUBITRIL/VALSARTAN 49-51 MG TABLET PO SCH (10:36)
[2022-03-31] MEDS: PANTOPRAZOLE 40 MG TABLET PO SCH (10:43)
[2022-03-31] MEDS: SODIUM CHLORIDE 0.9% 1,000 ML IV SCH ×2 (10:50→11:53)
[2022-03-31 11:44] VITALS: BP 111/70
== END 2022-03-31 15:02 | DRG 291 ==
LOC: N.ED 02:17 → N.EDINP 03:26 → N.TELES 05:00
PROVIDERS: ADMIT Internal Medicine; ATTEND Internal Medicine